=== PATIENT | female | born 1965 | race Asian ===

== ENCOUNTER 2017-05-30 18:08 | Emergency (ER) | payer BC ==
[~2017-05-30] VITALS: Ht 162.6 cm; Wt 102.1 kg
[~2017-05-30 18:08] MED LIST: ALPR0.2566 PO; CIPRO500 MG OR; CYCL10TA35 PO; IBUP800T30 PO; LEVO0.0529 PO; MELO-13 PO; METF500T PO; PAROXETINE40 MG PO
[2017-05-30 19:03] LABS: PLATELET COUNT 273 K/uL (152-353)
[2017-05-30 19:46] LABS: POTASSIUM 4.4 mmol/L (3.6-5.2)
[2017-05-30 20:55] VITALS: BP 88/44; TEMP 98.2
== END 2017-05-30 20:58 | disposition home or self-care (01) ==
LOC: ED 18:08
DX: J02.0 Streptococcal pharyngitis (principal); E11.40 Type 2 diabetes mellitus with diabetic neuropathy, unspecified; M47.892 Other spondylosis, cervical region
CPT/HCPCS: 36415; 80048; 81000; 85027; 87804; 87880; 96372; 99283; J1885

== ENCOUNTER 2017-10-03 09:57 | Outpatient (CLI) | payer BC | END 2017-10-03 20:44 | disposition home or self-care (01) | LOC: MAMMO 09:57 | DX: Z12.31 Encounter for screening mammogram for malignant neoplasm of breast (principal) ==

== ENCOUNTER 2018-05-26 08:51 | Outpatient (CLI) | payer BC | END 2018-05-26 21:23 | disposition home or self-care (01) | LOC: LABW 08:51 | PROVIDERS: Internal Medicine | DX: E78.00 Pure hypercholesterolemia, unspecified (principal) | CPT/HCPCS: 36415; 80061; 80076 ==

== ENCOUNTER 2018-10-24 10:14 | Outpatient (CLI) | payer BC | END 2018-10-24 19:20 | disposition home or self-care (01) | LOC: MAMMO 10:14 | DX: Z12.31 Encounter for screening mammogram for malignant neoplasm of breast (principal); Z13.820 Encounter for screening for osteoporosis ==

== ENCOUNTER 2019-08-18 15:44 | Emergency (ER) | payer BC ==
[~2019-08-18] VITALS: Ht 162.6 cm; Wt 102.1 kg
[2019-08-18 16:40] LABS: PLATELET COUNT 229 K/uL (152-353)
[2019-08-18 18:45] VITALS: BP 137/75; TEMP 98.9
== END 2019-08-18 18:48 | disposition home or self-care (01) ==
LOC: ED 15:44
PROVIDERS: Emergency Medicine
DX: J02.0 Streptococcal pharyngitis (principal); R50.9 Fever, unspecified
CPT/HCPCS: 36415; 80053; 81000; 85027; 87040; 87502; 87651; 96360; 96365; 96372; 99284; J0696

== ENCOUNTER 2019-11-19 09:32 | Outpatient (CLI) | payer BC | END 2019-11-19 22:04 | disposition home or self-care (01) | LOC: MAMMO 09:32 | DX: Z12.31 Encounter for screening mammogram for malignant neoplasm of breast (principal) ==

== ENCOUNTER 2020-05-08 09:07 | Outpatient (CLI) | payer BC | END 2020-05-08 18:59 | disposition home or self-care (01) | LOC: RAD 09:07 | PROVIDERS: ATTEND Internal Medicine | DX: M79.672 Pain in left foot (principal) ==

== ENCOUNTER 2020-06-15 11:20 | Emergency (ER) | payer BC ==
[~2020-06-15] VITALS: Ht 160 cm; Wt 99.8 kg
[2020-06-15 11:34] VITALS: TEMP 97.4
[2020-06-15 12:27] LABS: PLATELET COUNT 234 K/uL (152-353)
[2020-06-15 12:32] LABS: POTASSIUM 4.4 mmol/L (3.6-5.2)
[2020-06-15 12:59] LABS: PARTIAL THROMBOPLASTIN TIME 25.8 SECONDS (24.5-33.6)
[2020-06-15 13:37] VITALS: BP 142/76
== END 2020-06-15 13:37 | disposition home or self-care (01) ==
LOC: ED 11:20
PROVIDERS: Hospitalist
DX: S09.8XXA Other specified injuries of head, initial encounter (principal); S16.1XXA Strain of muscle, fascia and tendon at neck level, initial encounter; W01.198A Fall on same level from slipping, tripping and stumbling with subsequent striking against other object, initial encounter; Y92.89 Other specified places as the place of occurrence of the external cause
CPT/HCPCS: 36415; 80048; 85027; 85610; 85730; 96360; 96361; 96375; 99284; J1885; J2405

== ENCOUNTER 2020-12-12 10:17 | Outpatient (CLI) | payer BC | END 2020-12-12 21:59 | disposition home or self-care (01) | LOC: MAMMO 10:17 | PROVIDERS: ATTEND Internal Medicine | DX: Z12.31 Encounter for screening mammogram for malignant neoplasm of breast (principal) ==

== ENCOUNTER 2021-06-24 09:26 | Outpatient (CLI) | payer BC, OTHER | END 2021-06-24 18:56 | disposition home or self-care (01) | LOC: LAB 09:26 | PROVIDERS: ATTEND Internal Medicine | DX: U07.1 COVID-19 (principal); Z20.822 Contact with and (suspected) exposure to COVID-19 | CPT/HCPCS: 87635; G2023; U0003 ==

== ENCOUNTER 2021-06-29 19:08 | Inpatient (IN) | payer BC, OTHER ==
[2021-06-29] VITALS (9 sets, daily range): BP systolic 100–134; BP diastolic 61–86; TEMP 100.1–100.4
[~2021-06-29] VITALS: Ht 160 cm; Wt 95.0 kg
[2021-06-29 20:28] LABS: POTASSIUM 3.9 mmol/L (3.6-5.2)
[2021-06-29 20:34] LABS: PLATELET COUNT 221 K/uL (152-353)
[2021-06-30] VITALS (26 sets, daily range): BP systolic 109–134; BP diastolic 69–89; TEMP 97.2–98.8
[2021-06-30] MEDS ORDERED: LIPITOR10 MG PO (14:43)
[2021-06-30] MEDS ORDERED: FERROUS SULF325 MG PO (14:43)
[2021-06-30 20:38] LABS: PLATELET COUNT 262 K/uL (152-353)
[2021-06-30 20:51] LABS: POTASSIUM 4.3 mmol/L (3.6-5.2)
[2021-07-01] VITALS (7 sets, daily range): BP systolic 103–132; BP diastolic 58–86; TEMP 97.8–98.6; Ht 160 cm; Wt 95.0 kg
[2021-07-01 05:10] LABS: PLATELET COUNT 273 K/uL (152-353)
[2021-07-01 05:31] LABS: POTASSIUM 4.2 mmol/L (3.6-5.2)
[2021-07-01] MEDS ORDERED: ASPIR-LOW81 MG PO (13:14)
[2021-07-02] VITALS: BP 104/65; TEMP 98.6
[2021-07-02 04:00] VITALS: BP 95/53; TEMP 98
[2021-07-02 04:41] LABS: PLATELET COUNT 310 K/uL (152-353)
[2021-07-02 04:54] LABS: POTASSIUM 4.3 mmol/L (3.6-5.2)
[2021-07-02 08:00] VITALS: BP 95/53; TEMP 97.9
[2021-07-02 12:00] VITALS: BP 117/73; TEMP 98.5
[2021-07-02 16:22] VITALS: BP 115/73; TEMP 99
[2021-07-02 20:00] VITALS: BP 108/71; TEMP 98.3
[2021-07-03] VITALS (7 sets, daily range): BP systolic 105–129; BP diastolic 54–80; TEMP 98.1–100
[2021-07-03 05:05] LABS: PLATELET COUNT 334 K/uL (152-353)
[2021-07-03 05:35] LABS: POTASSIUM 4.8 mmol/L (3.6-5.2)
[2021-07-04 03:44] VITALS: BP 89/43; TEMP 98.6
[2021-07-04 05:18] LABS: PLATELET COUNT 357 K/uL (152-353)
[2021-07-04 05:30] LABS: POTASSIUM 4.4 mmol/L (3.6-5.2)
[2021-07-04 08:00] VITALS: BP 108/67; TEMP 98.3
[2021-07-04 12:00] VITALS: BP 86/56; TEMP 97.9
[2021-07-04 16:00] VITALS: BP 97/61; TEMP 97
[2021-07-04 20:02] VITALS: BP 110/50; TEMP 98.7
[2021-07-05] VITALS (7 sets, daily range): BP systolic 94–138; BP diastolic 50–79; TEMP 98.3–98.9
[2021-07-05 05:28] LABS: PLATELET COUNT 392 K/uL (152-353)
[2021-07-06 04:00] VITALS: BP 164/76; TEMP 97.09
[2021-07-06 05:21] LABS: PLATELET COUNT 383 K/uL (152-353)
[2021-07-06 05:42] LABS: POTASSIUM 4.1 mmol/L (3.6-5.2)
[2021-07-06 08:23] VITALS: BP 90/52; TEMP 98
== END 2021-07-06 14:45 | disposition home or self-care (01) | DRG 177 ==
LOC: ED 19:08 → MED/SURG 06-30 20:33
PROVIDERS: Emergency Medicine; ADMIT Hospitalist; ATTEND Internal Medicine Endocrinology, Diabetes & Metabolism
DX: U07.1 COVID-19 (principal); J12.82 Pneumonia due to coronavirus disease 2019; J96.01 Acute respiratory failure with hypoxia; E11.9 Type 2 diabetes mellitus without complications; I10 Essential (primary) hypertension; E03.8 Other specified hypothyroidism; E78.49 Other hyperlipidemia; D50.8 Other iron deficiency anemias; F41.8 Other specified anxiety disorders; E66.8 Other obesity; Z68.36 Body mass index [BMI] 36.0-36.9, adult
CPT/HCPCS: 36415; 36600; 80053; 82805; 85027; 87502; 87635; 87651; 94760; 96372; 96374; 96375; 96376; 99284; J0248; J0456; J0696; J1100; J1650; J3490; U0003

== ENCOUNTER 2022-01-21 08:30 | Outpatient (CLI) | payer BC ==
[~2022-01-21 08:30] MED LIST changes: +ASPIR-LOW81 MG PO; +FERROUS SULF325 MG PO; +LIPITOR10 MG PO
== END 2022-01-21 21:19 | disposition home or self-care (01) ==
LOC: MAMMO 08:30
PROVIDERS: ATTEND Internal Medicine
DX: Z12.31 Encounter for screening mammogram for malignant neoplasm of breast (principal)

== ENCOUNTER 2023-03-17 09:11 | Outpatient (CLI) | payer BC | END 2023-03-17 19:44 | disposition home or self-care (01) | LOC: US 09:11 | PROVIDERS: ATTEND Internal Medicine | DX: R92.8 Other abnormal and inconclusive findings on diagnostic imaging of breast (principal) ==